=== PATIENT | male | born 1995 | race Hispanic/Latino ===

== ENCOUNTER 2019-01-15 16:49 | Emergency (ER) | payer SELFPAY ==
[~2019-01-15] VITALS: Ht 180.3 cm; Wt 81.6 kg
--- OUTSIDE RECORDS SUMMARY | 2019-01-15 16:52 | XMS REPORT ---
Author [facility] [place] Address Unknown Phone Unavailable Care Team Providers Care Search Specialist Name Role Phone Unavailable Unavailable Payers Payer Name Policy Type Policy Number Effective Date Expiration Date Problems This patient has no known problems. Allergies, Adverse Reactions, Alerts Allergy Name Allergy Type Status Severity Reaction(s) Onset Date Inactive Date Treating Clinician Comments No Known Allergies DA Active U 2015-04-16 00:00:00 Medications This patient has no known medications. Results Test Description Test Time Test Comments Text Results Atomic Results Result Comments - CT MAXIFAC W/O CONTRAST 2019-01-06 20:58:00 FAX: Kelvin Puga MD [place]: St: REG FAX: Joseluis Freeman [phone] Name: DIONY IVERSON [facility] : 1995 Age/S: 24/M [address] [facility] Unit: [id number] Loc: E.EXP [place], [place] Phys: Joseluis Negron [employer]STRUCTIONAL SERVICES SPECIALIST [id number] Acct: [id number] Dis Date: Status: REG ER PHONE #: [phone] Exam Date: 01/06/20192015 FAX #: [phone] Reason: jaw pain EXAMS: CPT CODE: [id number] CT MAXIFAC W/O CONTRAST 52738 CT OF THE MAXILLOFACIAL BONES WITHOUT CONTRAST LOCATION: R16 CLINICAL HISTORY: Jaw pain. COMPARISON: No previous exam available. TECHNIQUE: A CT of the maxillofacial bones was performed using thin axial cuts. Coronal and sagittal reconstructed images were also obtained and displayed. Automated exposure reduction (Auto mA/Smart mA) was utilized in compliance with ACR Image [employer]isely with DLP of 1025 mGy-cm. FINDINGS: No fracture is identified in the maxillofacial bones. A 1.4 x 0.7 cm oval structure is seen in the left maxillary sinus, possibly a small mucous retention cyst or polyp. Numerous borderline lymph nodes are seen in the bilateral neck, without significant asymmetry. The nasal septum is midline. The bilateral nasal turbinates are intact. The bilateral osteomeatal complexes are clear. The visualized pharyngeal soft tissues are within normal limits. The bilateral orbits and intraorbital contents are intact. IMPRESSION: No acute osseous abnormality involving the maxilla facial bones. Borderline neck adenopathy. at 2057 Reported and signed by: Marnie Reyes M.D. CC: Kelvin Puga MD; Joseluis Negron NP Technologist: VASQUEZ ADAMS Trnscrd Dt/Tm: 01/06/2019 (2057) De Orig Print D/T: S: 01/06/2019 (2100 PAGE 1 Signed Report
[2019-01-15] MEDS ORDERED: KETOROLAC TROMETHAMINE 60 MG/2 ML VIAL ONE (17:27)
[2019-01-15] MEDS ORDERED: HYDROCODONE/APAP 10MG-325MG TAB ONE (17:28)
[2019-01-15] MEDS ORDERED: HYDROCODONE/APAP 10MG-325MG TAB PO ONE (17:30)
[2019-01-15] MEDS ORDERED: KETOROLAC TROMETHAMINE 60 MG/2 ML VIAL IM ONE (17:30)
--- NOTE | 2019-01-15 18:00 | Diagnostic Imaging Report ---
Exam: Right shoulder 2 views History: Pain Comparison: None. Findings: See impression Impression: Right anterior shoulder dislocation. Hill-Sachs impaction. Signed by: Dr. Theo Perez M.D. on 01/15/2019 5:57 PM
[2019-01-15] MEDS ORDERED: HYDROMORPHONE 2MG/ML 2 MG/ML ML IV ONE (18:15)
[2019-01-15] MEDS ORDERED: HYDROMORPHONE 1MG/1ML INJ IV ONE (18:15)
--- NOTE | 2019-01-15 18:26 | NUR ---
ALISSA OLIVARES AT BEDSIDE FOR REDUCTION OF RT SHOULDER AT THIS TIME, RECEVIED VEERBAL ORDERS TO GIVE 0.5 MG HYDROMORPHONE SLOW IVP.
--- NOTE | 2019-01-15 18:30 | NUR ---
RECEIVED VERBAL ORDERS TO GIVE ADDITIONAL 0.5 MG HYDROMORPHONE SLOW IVP AT THIS TIME; TOTAL DOSE 1 MG IV, PT TOLERATING WELL AT THIS TIME.
--- NOTE | 2019-01-15 18:40 | NUR ---
ALISSA OLIVARES COMPLETE WITH SHOULDER REDCUTION AT THIS TIME, PT TOLERATING WELL, V/S/S. CALLED RADIOLOGY FOR POST-REUCTION X-RAY TO BE DONE AT BEDSIDE.
--- NOTE | 2019-01-15 18:45 | NUR ---
RADIOLOGY AT BEDSIDE FOR POST-REDUCTION X-RAYS AT THIS TIME.
--- NOTE | 2019-01-15 19:08 | Diagnostic Imaging Report ---
Exam: Right shoulder 2 views History: Pain Comparison: 01/15/2019 Findings: See impression Impression: Reduction of the right anterior shoulder dislocation. Hill-Sachs impaction. Signed by: Dr. Theo Perez M.D. on 01/15/2019 7:05 PM
[2019-01-15 19:27] VITALS: BP 139/87
--- NOTE | 2019-01-15 19:27 | Diagnostic Imaging Report ---
Exam: Right shoulder 2 views History: Pain Comparison: 01/15/2019 Findings: See impression Impression: Reduction of the right anterior shoulder dislocation. Hill-Sachs impaction. Signed by: Dr. Theo Perez M.D. on 01/15/2019 7:24 PM
== END 2019-01-15 19:30 | disposition home or self-care (01) ==
LOC: ER 16:49
DX: S43.014A Anterior dislocation of right humerus, initial encounter (principal); X50.1XXA Overexertion from prolonged static or awkward postures, initial encounter; Y99.0 Civilian activity done for income or pay
CPT/HCPCS: 23650; 73020; 73030; 99283; J1170; J1885